=== PATIENT | female | born 1965 | race African-American/Black ===

== ENCOUNTER 2021-05-04 15:02 | Outpatient (CLI) | payer OTHER | END 2021-05-04 15:03 | disposition home or self-care (01) | LOC: TBSIIMAG 15:02 | PROVIDERS: ATTEND Neurological Surgery | DX: M47.12 Other spondylosis with myelopathy, cervical region (principal); M50.021 Cervical disc disorder at C4-C5 level with myelopathy; M48.02 Spinal stenosis, cervical region; Z98.1 Arthrodesis status; Z98.890 Other specified postprocedural states | CPT/HCPCS: 72141 ==

== ENCOUNTER 2021-09-23 09:55 | Outpatient (CLI) | payer BC | END 2021-09-23 09:56 | disposition home or self-care (01) | LOC: TBSIIMAG 09:55 | PROVIDERS: ATTEND Neurological Surgery | DX: M47.22 Other spondylosis with radiculopathy, cervical region (principal); Z98.1 Arthrodesis status | CPT/HCPCS: 72040 ==